=== PATIENT | male | born 1960 | race Caucasian/White ===

== ENCOUNTER 2018-09-26 13:35 | Emergency (ER) | payer OTHER ==
--- NOTE | 2018-09-26 14:18 | UC ---
General HPI - HPI Summary HPI Summary: Here to have sutures removed. Placed when he had a syncopal event after drinking and taking more than prescribed amount of his blood pressure medications. Has not had a chance to get sutures removed since they were placed on 08/28. Is taking his medications as prescribed. No presyncopal symptoms. Doing well. No drainage or redness at site. Minimal pain. Meds: reviewed - History of Current Complaint Stated Complaint: SUTURE REMOVAL Time Seen by Provider: 09/26/18 14:17 - Allergy/Home Medications Allergies/Adverse Reactions: Allergies Allergy/AdvReac Type Severity Reaction Status Date / Time No Known Allergies Allergy Verified 08/28/18 20:21 PMH/Surg Hx/FS Hx/Imm Hx - Surgical History Surgical History: Yes Surgery Procedure, Year, and Place: right knee cartilage - Family History Known Family History: Positive: Cardiac Disease - Social History Alcohol Use: Daily Alcohol Amount: 5x Substance Use Type: None Smoking Status (MU): Former Smoker Type: Cigarettes Review of Systems All Other Systems Reviewed And Are Negative: No - Comments Additional Review of Systems Comments: Focused visit Physical Exam Triage Information Reviewed: No Vital Signs: NO triage info Skin Exam: Other - several sutures placed in chin - removed without issue. Laceration well healed, clean, dry. No erythema or drainage Course/Dx - Course Course Of Treatment: This is a 58 yr old requiring suture removal. Assessment. Sutures removed - no complications. Vitals and triage since reviewed. Plan. Keep area clean and dry. Continue medications as prescribed - Diagnoses Provider Diagnosis: Visit for suture removal Discharge - Sign-Out/Discharge Documenting (check all that apply): Patient Departure All imaging exams completed and their final reports reviewed: No Studies - Discharge Plan Condition: Good Disposition: HOME Referrals: No Primary Care Phys,NOPCP [Primary Care Provider] - Additional Instructions: Continue to keep area clean and dry Continue taking blood pressure medications as prescribed - Billing Disposition and Condition Condition: GOOD Disposition: Home
[2018-09-26 14:35] VITALS: BP 145/86
== END 2018-09-26 14:43 | disposition home or self-care (01) ==
LOC: UCEAST 13:35
DX: S01.81XD Laceration without foreign body of other part of head, subsequent encounter (principal); W19.XXXD Unspecified fall, subsequent encounter; Z87.891 Personal history of nicotine dependence
CPT/HCPCS: 99211; G0463

== ENCOUNTER 2018-12-30 15:43 | Emergency (ER) | payer BC, OTHER ==
--- NOTE | 2018-12-30 16:22 | ED ---
Back Pain - HPI Summary HPI Summary: Patient is a 58 y/o male who presents to the ED c/o back pain. For the past week hes had intermittent right lower back pain that radiates to his RLE. The pain is made worse with sitting or lying flat, and alleviated by standing upright. Today the pain became worse and is now rated a 7/10 in severity. He denies any numbness, tingling, or weakness of his BLE, saddle anesthesia, urinary/bowel incontinence, abdominal pain, or CP. Patient has tried ice, heat, and Ibuprofen without relief. He has a hx of sciatica and states that rest and the chiropractor have helped in the past. - History of Current Complaint Chief Complaint: EDBackInjuryPain Stated Complaint: BACK PAIN/POSS PINCHED NERVE PER PT Time Seen by Provider: 12/30/18 16:12 Hx Obtained From: Patient Onset/Duration: Gradual Onset, Lasting Weeks - 1, Worse Since Timing: Intermittent Back Pain Location: Is Discrete @ - right lower back, radiating to RLE Severity Currently: Moderate Pain Intensity: 7 Pain Scale Used: 0-10 Numeric Aggravating Symptom(s): Other - Lying flat, sitting down Alleviating Symptom(s): Position - standing up Associated Signs And Symptoms: Negative: Weakness, Numbness, Tingling, Abdominal Pain, Bladder Incontinence, Bowel Incontinence Related History: Similar Episode Dx As - sciatica - Allergies/Home Medications Allergies/Adverse Reactions: Allergies Allergy/AdvReac Type Severity Reaction Status Date / Time No Known Allergies Allergy Verified 12/30/18 15:56 PMH/Surg Hx/FS Hx/Imm Hx Endocrine/Hematology History: Denies: Hx Sickle Cell Disease Cardiovascular History: Reports: Hx Hypercholesterolemia, Hx Hypertension, Hx Syncope History: Reports: Hx Benign Prostatic Hyperplasia Musculoskeletal History: Reports: Hx Tendonitis - elbows and BL feet Sensory History: Denies: Hx Contacts or Glasses, Hx Legally Blind, Hx Deafness, Hx Hearing Aid Opthamlomology History: Denies: Hx Contacts or Glasses, Hx Legally Blind Neurological History: Reports: Other Neuro Impairments/Disorders - sciatica Psychiatric History: Denies: Hx Autism - Cancer History Cancer Type, Location and Year: melanoma of skin on the back -10 years ago - Surgical History Surgery Procedure, Year, and Place: right knee cartilage Infectious Disease History: No Infectious Disease History: Denies: History Other Infectious Disease, Traveled Outside the [place] in Last 30 Days - Family History Known Family History: Positive: Cardiac Disease - Social History Alcohol Use: Daily Alcohol Amount: 5x Hx Substance Use: No Substance Use Type: Reports: None Hx Tobacco Use: Yes Smoking Status (MU): Former Smoker Type: Cigarettes Review of Systems Negative: Chest Pain Negative: Abdominal Pain, Other - incontinence Negative: incontinence Positive: Myalgia - low right back, radiating down leg Negative: Weakness - BLE, Paresthesia - BLE, Numbness - BLE, saddle All Other Systems Reviewed And Are Negative: Yes Physical Exam - Summary Physical Exam Summary: Appearance: Well appearing, no pain distress Skin: warm, dry, reflects adequate perfusion Head/face: normal Eyes: EOMI, JAY ENT: mucous membranes moist Neck: supple, non-tender Respiratory: CTA, breath sounds present Cardiovascular: RRR, pulses symmetrical Abdomen: non-tender, soft Bowel Sounds: present Musculoskeletal: strength/ROM intact, low lumbar muscular tenderness, minimal tenderness at right sciatic notch, negative straight leg raise Neuro: normal, sensory motor intact, A&Ox3, normal sensation in saddle and RLE, normal gait, no weakness Triage Information Reviewed: Yes Vital Signs On Initial Exam: Initial Vitals Temp Pulse Resp BP Pulse Ox 98.4 F 75 16 156/82 96 12/30/18 15:54 12/30/18 15:54 12/30/18 15:54 12/30/18 15:54 12/30/18 15:54 Vital Signs Reviewed: Yes Procedures - Procedure Summary Procedure Summary: Trigger point injection, done for pain: Patient was experiencing right low lumbar muscular pain in addition to radiculopathy. The area of tenderness and spasm was cleaned with alcohol and injected with a total of 10 cc of 0.5% bupivacaine with epinephrine and divided aliquots. It was massage to the tissues. This improved his discomfort and he tolerated it well without complication. Diagnostics - Vital Signs Vital Signs Temp Pulse Resp BP Pulse Ox 12/30/18 15:54 98.4 F 75 16 156/82 96 - Laboratory Lab Statement: Any lab studies that have been ordered have been reviewed, and results considered in the medical decision making process. Back Pain Course/Dx - Course Course Of Treatment: Nurse's notes reviewed. Patient with low lumbar pain on the right with radiculopathy, history of the same. Treated with trigger point injection here and oral medications with improvement. He has chiropractic appointment in 2 days' time. He'll continue on similar outpatient along with steroids. He is discharged in good condition neurologically intact. - Diagnoses Differential Diagnosis/HQI/PQRI: Positive: Cauda Equina Syndrome, Compressive Cord Syndrome, Herniated Disc, Strain, Sprain Provider Diagnoses: Lumbar pain, Lumbar radiculopathy Discharge - Sign-Out/Discharge Documenting (check all that apply): Patient Departure - Discharge Patient Received Moderate/Deep Sedation with Procedure: No - Discharge Plan Condition: Improved Disposition: HOME Prescriptions: Cyclobenzaprine (NF) [Cyclobenzaprine 5 MG (NF)] 5 - 10 mg PO TID PRN #15 tab PRN Reason: muscle pain Dexamethasone TAB* [Decadron TAB*] 8 mg PO DAILY #6 tab Naproxen [Naproxen 500 mg tab] 500 mg PO BID PRN #12 tablet PRN Reason: Pain Patient Education Materials: Sciatica (ED), Lower Back Exercises (ED) Referrals: Stephen Lemus MD [Primary Care Provider] - Additional Instructions: Drink plenty of fluids, stretching, range of motion exercises and icing may help. See her chiropractor scheduled on Monday. Return with numbness/ weakness, difficulty with bowel or bladder, uncontrolled pain, worse or other concerns. - Billing Disposition and Condition Condition: IMPROVED Disposition: Home - Attestation Statements Document Initiated by Nanda: Yes Documenting Scribe: Pamela Maher Provider For Whom Faridehibe is Documenting (Include Credential): Anders Edouard MD Scribe Attestation: Pamela Ramirez scribed for Anders Edouard MD on 12/30/18 at 1826. Scribe Documentation Reviewed: Yes Provider Attestation: The documentation as recorded by the Pamela martinez accurately reflects the service I personally performed and the decisions made by , Anders Edouard MD Status of Scribe Document: Viewed
[2018-12-30] MEDS ORDERED: Ketorolac INJ* 60 MG/2 ML VIAL IM ONE (16:23)
[2018-12-30] MEDS ORDERED: Cyclobenzaprine TAB* 10 MG PO ONE (16:23)
[2018-12-30] MEDS ORDERED: Dexamethasone TAB* 4 MG PO ONE (16:23)
[2018-12-30] MEDS ORDERED: Bupivacaine 0.5% W/EPI SDV* 30 ML VIAL INJ ONE (16:23)
[2018-12-30 17:09] VITALS: BP 129/78
== END 2018-12-30 17:07 | disposition home or self-care (01) ==
LOC: ED 15:43
DX: M54.16 Radiculopathy, lumbar region (principal); M54.9 Dorsalgia, unspecified; M54.5 Low back pain; I10 Essential (primary) hypertension; Z87.891 Personal history of nicotine dependence
CPT/HCPCS: 96374; 99283; A9270-GY; J1885; J8540

== ENCOUNTER 2021-10-01 19:07 | Inpatient (IN) ==
[2021-10-01 20:27] LABS: ABS Eosinophils 0.1 10^3/ul (0-0.6); ABS Lymphocytes 0.9 10^3/ul (1.0-4.8); ABS Monocytes 1.5 10^3/ul (0-0.8); ABS Neutrophils 10.2 10^3/ul (1.5-7.7); Eosinophil % 0.5 %; Hematocrit 42 % (42-52); Hemoglobin 14.1 g/dL (14.0-18.0); Lymphocyte % 6.9 %; Mean Corpuscular HGB Conc 34 g/dL (31-36); Mean Corpuscular Hemoglobin 28 pg (27-31); Mean Corpuscular Volume 83 fL (80-94); Mean Platelet Volume 9.7 fL (7.4-10.4); Nucleated Red Blood Cells % 0.1; Platelet Count 221 10^3/uL (150-450); Red Blood Count 5.03 10^6 /uL (4.18-5.48); Red Cell Distribution Width 13 % (10-15); White Blood Count 12.6 10^3/uL (3.5-10.8)
[2021-10-01 20:33] LABS: INR 1.53 (0.86-1.15)
[2021-10-01 20:43] LABS: Albumin 3.8 g/dL (3.2-5.2); Albumin/Globulin Ratio 1.5 (1-3); Calcium 8.6 mg/dL (8.6-10.3); Globulin 2.6 g/dL (2-4); Magnesium 2.1 mg/dL (1.9-2.7); Potassium 3.2 mmol/L (3.5-5.0); Total Bilirubin 0.6 mg/dL (0.2-1.0); Total Protein 6.4 g/dL (6.4-8.9)
[2021-10-01] MEDS ORDERED: Sodium Bicarb 8.4% Vial 50 ML 150 MEQ in D5W 1000 ml BAG 850 ML IV ONE (21:07)
[2021-10-01] MEDS ORDERED: Lactated Ringers 1000 ml BAG 1,000 ML IV ONE (21:09)
[2021-10-01 21:52] LABS: Urine Appearance Clear; Urine Bilirubin Negative (Negative); Urine Blood 2+ (Negative); Urine Color Yellow; Urine Glucose Negative (Negative); Urine Ketones Negative (Negative); Urine Nitrite Negative (Negative); Urine Protein Negative (Negative); Urine Specific Gravity 1.009 (1.002-1.030); Urine Urobilinogen Negative (Negative)
[2021-10-01 21:55] LABS: Urine Bacteria Absent (Absent); Urine Red Blood Cell 3+(>10/hpf) (Absent); Urine Squamous Epithelial Cell Present (Absent); Urine White Blood Cell Trace(0-5/hpf) (Absent)
[2021-10-01 22:11] LABS: Urine Creatinine Concentration 88.61 mg/dL
[2021-10-02] MEDS ORDERED: Ondansetron 4 mg VIAL 2 MG/ML 2 ml VIAL IV PRN (00:25)
[2021-10-02] MEDS ORDERED: NS 0.9% 1000 ml BAG 1,000 ML IV SCH (00:30)
[2021-10-02 05:21] LABS: ABS Lymphocytes 0.6 10^3/ul (1.0-4.8); ABS Monocytes 1.4 10^3/ul (0-0.8); ABS Neutrophils 10.5 10^3/ul (1.5-7.7); Eosinophil % 0.2 %; Hematocrit 45 % (42-52); Hemoglobin 15.6 g/dL (14.0-18.0); Lymphocyte % 4.5 %; Mean Corpuscular HGB Conc 35 g/dL (31-36); Mean Corpuscular Hemoglobin 29 pg (27-31); Mean Corpuscular Volume 82 fL (80-94); Mean Platelet Volume 9.8 fL (7.4-10.4); Platelet Count 236 10^3/uL (150-450); Red Blood Count 5.49 10^6 /uL (4.18-5.48); Red Cell Distribution Width 14 % (10-15); White Blood Count 12.5 10^3/uL (3.5-10.8)
[2021-10-02 05:40] LABS: Calcium 9.5 mg/dL (8.6-10.3); Magnesium 2.3 mg/dL (1.9-2.7); eGFR CKD-EPI 14.4 (>60)
[2021-10-02] MEDS: Lactated Ringers 1000 ml BAG 1,000 ML IV SCH ×3 (05:45→21:27)
[2021-10-02] MEDS: Heparin 5000 UNITS/ML 1 mL VIAL SUBCUT SCH ×3 (06:24→21:29)
[2021-10-02 06:50] LABS: Potassium 2.7 mmol/L (3.5-5.0)
[2021-10-02] MEDS: Potassium Chlor 20 meq TAB.ER PO SCH ×2 (07:38→10:52)
[2021-10-02 14:23] LABS: Calcium 9.3 mg/dL (8.6-10.3); Potassium 3.2 mmol/L (3.5-5.0); eGFR CKD-EPI 54.1 (>60)
[2021-10-02] MEDS ORDERED: Potassium Chlor 20 meq TAB.ER PO ONE (14:57)
[2021-10-03] MEDS: Lactated Ringers 1000 ml BAG 1,000 ML IV SCH (05:36)
[2021-10-03] MEDS: Heparin 5000 UNITS/ML 1 mL VIAL SUBCUT SCH ×3 (05:37→21:56)
[2021-10-03 06:10] LABS: Calcium 8.9 mg/dL (8.6-10.3); Magnesium 1.9 mg/dL (1.9-2.7); Potassium 3.3 mmol/L (3.5-5.0); eGFR CKD-EPI 105.9 (>60)
[2021-10-03] MEDS ORDERED: Potassium Chlor 20 meq TAB.ER PO ONE (08:15)
[2021-10-04 06:25] LABS: Calcium 8.8 mg/dL (8.6-10.3); Potassium 3.4 mmol/L (3.5-5.0); eGFR CKD-EPI 106.4 (>60)
[2021-10-04] MEDS: Heparin 5000 UNITS/ML 1 mL VIAL SUBCUT SCH (06:26)
[2021-10-04 08:32] VITALS: BP 107/92
[2021-10-04] MEDS ORDERED: Potassium Chlor 20 meq TAB.ER PO ONE (08:49)
== END 2021-10-04 11:15 | disposition home or self-care (01) | DRG 683 ==
LOC: ED 19:07 → SUATTDRO 23:25 → EDHOLD 23:25 → SSU 10-02 02:46
PROVIDERS: ADMIT Student in an Organized Health Care Education/Training Program; ATTEND Family Medicine